=== PATIENT | female | born 1985 | race Caucasian/White ===

== ENCOUNTER 2024-04-19 15:01 | Outpatient (CLI) | payer BC, SELFPAY ==
[2024-04-19 17:03] LABS: HCG,Quantitative 43004 mIU/ml (0-5.42)
[2024-04-21 10:23] LABS: Progesterone 14.5 ng/mL (.)
== END 2024-04-19 23:59 | disposition home or self-care (01) ==
LOC: LAB 15:04
PROVIDERS: PCP Obstetrics & Gynecology; Visit Provider Obstetrics & Gynecology
DX: N92.6 Irregular menstruation, unspecified (principal)
CPT/HCPCS: 36415; 84144; 84702

== ENCOUNTER 2024-04-30 14:40 | Outpatient (CLI) | payer BC, SELFPAY ==
[2024-04-30 15:36] LABS: Basophils # 0.1 K/mm3 (0-0.2); Basophils % 0.6 % (0.1-2.0); Eosinophils # 0.1 K/mm3 (0.0-0.4); Eosinophils % 0.5 % (0.1-12.0); Hematocrit 42.7 % (37.0-47.0); Hemoglobin 14.1 g/dL (12.2-16.2); Lymphocytes # 2.4 K/mm3 (0.7-4.5); Lymphocytes % 19.7 % (10-50); Mean Corpuscular HGB Conc 33.1 g/dL (31.8-35.4); Mean Corpuscular Hemoglobin 31.4 pg (27.0-31.2); Mean Corpuscular Volume 94.7 fl (81-99); Mean Platelet Volume 8.9 fl (7.4-10.4); Monocytes # 0.5 K/mm3 (0.1-1.0); Neutrophils # 9.3 K/mm3 (1.8-7.8); Neutrophils % 75.3 % (37.0-80.0); Platelet Count 267 K/mm3 (142-424); Red Cell Distribution Width 13.5 % (11.5-17.5); White Blood Count 12.4 K/mm3 (4.8-10.8)
[2024-05-01 06:54] LABS: HCV Ab Non Reactive (Non Reactive); Hepatitis B Surface Antigen Negative (Negative); Rubella Antibodies, IgG 1.99 index (Immune >0.99)
[2024-05-01 10:03] LABS: HIV (1&2) Antibody Rapid NONREACTIVE (NONREACTIVE)
[2024-05-01 12:55] LABS: Rapid Plasma Reagin Ab Titer Non Reactive titer (NonRea<1:1)
== END 2024-04-30 23:59 | disposition home or self-care (01) ==
LOC: LAB 14:42
PROVIDERS: Visit Provider Obstetrics & Gynecology
DX: Z34.91 Encounter for supervision of normal pregnancy, unspecified, first trimester (principal); Z3A.08 8 weeks gestation of pregnancy
CPT/HCPCS: 36415; 85025; 86593; 86762; 86850; 87086; 87340

== ENCOUNTER 2024-09-10 15:33 | Outpatient (CLI) | payer BC, SELFPAY ==
[2024-09-10 16:32] LABS: Basophils # 0.1 K/mm3 (0-0.2); Basophils % 0.4 % (0.1-2.0); Eosinophils # 0.2 K/mm3 (0.0-0.4); Eosinophils % 1.5 % (0.1-12.0); Hematocrit 39.3 % (37.0-47.0); Hemoglobin 13.3 g/dL (12.2-16.2); Lymphocytes # 2.3 K/mm3 (0.7-4.5); Lymphocytes % 21.2 % (10-50); Mean Corpuscular HGB Conc 33.7 g/dL (31.8-35.4); Mean Platelet Volume 8.8 fl (7.4-10.4); Monocytes # 0.6 K/mm3 (0.1-1.0); Monocytes % 5.8 % (1.7-9.3); Neutrophils # 7.6 K/mm3 (1.8-7.8); Neutrophils % 70.9 % (37.0-80.0); Platelet Count 220 K/mm3 (142-424); Red Blood Count 4.27 M/mm3 (4.20-5.40); Red Cell Distribution Width 13.7 % (11.5-17.5); White Blood Count 10.7 K/mm3 (4.8-10.8)
[2024-09-10 16:45] LABS: Glucose 1 Hour 78 mg/dL (74-100); Glucose,Fasting 78 mg/dl (74-100)
[2024-09-11 15:00] LABS: RPR W/RFX Titers Nonreactive (Nonreactive)
== END 2024-09-10 23:59 | disposition home or self-care (01) ==
LOC: LAB 15:33
PROVIDERS: Visit Provider Obstetrics & Gynecology
DX: Z34.90 Encounter for supervision of normal pregnancy, unspecified, unspecified trimester (principal)
CPT/HCPCS: 36415; 82951; 85025; 86592

== ENCOUNTER 2024-11-12 16:00 | Outpatient (CLI) | payer BC, SELFPAY | END 2024-11-12 23:59 | disposition home or self-care (01) | LOC: LAB.DROPOF 11-13 10:48 | PROVIDERS: PCP Obstetrics & Gynecology; Visit Provider Obstetrics & Gynecology | DX: Z34.83 Encounter for supervision of other normal pregnancy, third trimester (principal) | CPT/HCPCS: 86403 ==

== ENCOUNTER 2024-12-02 01:00 | Inpatient (IN) | payer BC, SELFPAY ==
[2024-12-02 00:35] VITALS: BMI 35.5
[2024-12-02 00:54] VITALS: BP 128/85; PULSE 81; RESP 19; TEMP 36.4; O2SAT 97; BMI 35.5
[2024-12-02 01:41] LABS: Microscopic, Urine URINE MICROSCOPIC (MICROSCOPIC)
[2024-12-02 01:43] LABS: Appearance,Urine CLEAR (Clear); Bilirubin,Urine Negative (Negative); Blood, Urine TRACE-L (Negative); Color,Urine YELLOW (Yellow); Glucose,Urine (UA) Negative (Negative); Ketones,Urine Negative (Negative); Leukocyte Esterase,Urine Negative (Negative); Nitrate,Urine Negative (Negative); Protein,Urine Negative (Negative); Specific Gravity, Urine 1.025 (1.005-1.030); Urobilinogen,Urine 0.2 EU/dl (0.2)
[2024-12-02 01:43] LABS: Basophils # 0.1 K/mm3 (0-0.2); Basophils % 0.5 % (0.1-2.0); Eosinophils # 0.3 K/mm3 (0.0-0.4); Eosinophils % 2.1 % (0.1-12.0); Hematocrit 40.8 % (37.0-47.0); Hemoglobin 13.9 g/dL (12.2-16.2); Lymphocytes # 3.2 K/mm3 (0.7-4.5); Lymphocytes % 20.1 % (10-50); Mean Corpuscular HGB Conc 34.1 g/dL (31.8-35.4); Mean Corpuscular Hemoglobin 30.1 pg (27.0-31.2); Mean Corpuscular Volume 88.3 fl (81-99); Mean Platelet Volume 12.5 fl (7.4-10.4); Monocytes # 1.3 K/mm3 (0.1-1.0); Monocytes % 7.9 % (1.7-9.3); Neutrophils # 10.9 K/mm3 (1.8-7.8); Neutrophils % 68.7 % (37.0-80.0); Platelet Count 269 K/mm3 (142-424); Red Blood Count 4.62 M/mm3 (4.20-5.40); Red Cell Distribution Width 13.2 % (11.5-17.5); White Blood Count 15.9 K/mm3 (4.8-10.8)
[2024-12-02 01:49] LABS: MANUAL DIFFERENTIAL MANUAL DIFFERENTIAL (MANUAL DIFF)
[2024-12-02 01:52] LABS: Bacteria,Urine Trace /lpf; RBC,Urine Occasional #/hpf (0-3); Squamous Epithelial Cell,Urine Occasional #/hpf (0-5)
--- NOTE | 2024-12-02 01:57 | P.HP_ITS ---
OB - H&P: HPI Antepartum History of Present Illness Chief complaint: Leakage of fluid and painful contractions History of present illness: Mrs Angie Le is a 39 yo at 39w2d who presents to [facility] L&D with complaint of leakage of fluid that started on 12/01/24 at 0100. Contractions started after she started leaking. She states contractions stalled out during the day but picked back up in intensity and frequency around 2000 on 12/01/24. She has had good care. History of Present Criteria for establishing EDC:: LMP confirmed by 1st trimester US care: good care Ultrasounds: normal mid trimester US Obstetrical complications: none Labs Blood type: A (+) positive Rubella: immune RPR/VDRL: nonreactive GBS status: negative HBsAG: negative PFSH PFS Disclaimer: The information contained in this section may have been updated after the patient was seen, as this information can be updated by other users. Medical History (Updated 12/02/24 @ 02:07 by Nicki Iverson DO) SROM (spontaneous rupture of membranes) Active labor at term Positive screening test Screening for genetic disease carrier status Advanced maternal age in multigravida Seasonal allergies Surgical History [place] teeth extracted Family History Family/Other No problems noted. Grandmother Cancer paternal-breast Mother Diabetes Father Cancer prostate Social History Smoking Status: Never smoker alcohol intake: never current occupational status: employed Travel in the last 8 weeks: None Have you lived/traveled outside [place] in past 30 days?: No Contact w/someone who lives/traveled outside [place] past 30 days?: No Exposure to someone with infectious disease in past 14 days?: No Do you have a fever (greater than 100.4 F or 38 C)?: No Have you tested positive for COVID-19: No Exposed to someone with COVID-19 in past 14 days?: No Do you have a sore throat?: No Do you have a cough?: No Do you have any weakness?: No Do you have any diarrhea?: No Are you experiencing any unusual bleeding?: No Do you have any muscle aches/pain?: No Do you have any abdominal pain?: No Are you experiencing loss of taste or smell?: No Review of Systems Review of Systems Review of systems:: pertinent systems reviewed and negative unless documented below *Genitourinary Comments: + leakage of fluid, contractions Meds Home Medications and Allergies Home Medications ?Medication ?Instructions ?Recorded ?Confirmed ?Type budesonide 32 mcg/actuation nasal 1 spray intranasal DAILY 04/30/24 11/26/24 History spray loratadine 10 mg tablet (Claritin) 10 mg PO DAILY 04/30/24 11/26/24 History vits no.126-ferrous fum 1 tab PO 04/30/24 11/26/24 History 28 mg iron-folic acid 800 mcg tablet (Classic ) New Prescriptions to Start Prescriptions: Allergies Allergy/AdvReac Type Severity Reaction Status Date / Time No Known Allergies Allergy Verified 11/26/24 15:34 OB - H&P: Exam Constitutional no acute distress and cooperative Routine HEENT Exam Head: Present normocephalic and atraumatic Eye: Absent conjunctivae pink ENT: Present mucous membranes moist Routine Neck Exam Present full ROM Routine Respiratory Exam Present CTA bilaterally and normal respiratory effort Routine Cardiovascular Exam Present RRR Routine Abdominal Exam Present soft (Gravid); Absent tenderness Routine Rectal Exam Patient deferred: visual exam Routine Exam External: Present normal urethra appearance; Absent erythema, swelling, tenderness, lesions or lacerations Routine Extremities Exam Present full ROM; Absent edema or calf tenderness Routine Neurological Exam Present alert, moving all extremities and normal speech Routine Psychiatric Exam Present normal affect and cooperative Detailed Labor and Delivery Exam Dilation (cm): 6 Effacement (%): 90 Cervix position: mid station: -1 Consistency: soft OB - Results Labs Labs: Short CBC 12/02/24 Range/Units 01:10 WBC 15.9 H (4.8-10.8) K/mm3 Hgb 13.9 (12.2-16.2) g/dL Hct 40.8 (37.0-47.0) % Plt Count 269 (142-424) K/mm3 Urine 12/02/24 Range/Units 01:00 Urine Color Yellow (Yellow) Urine Appearance Clear (Clear) Urine pH 6.0 (5.0-8.5) Ur Specific [place] 1.025 (1.005-1.030) Urine Protein Negative (Negative) Urine Glucose (UA) Negative (Negative) OB - A/P Antepartum (1) SROM (spontaneous rupture of membranes): Status: Acute (2) Active labor at term: Status: Acute (3) Advanced maternal age in multigravida: Status: Acute (4) Positive screening test: Problem details: NIPT was high risk due to DNA fraction, 2.7 %. High risk for Trisomy 18 or 13 Status: Acute Additional Plan Planning to breastfeed?: Yes Additional Information:: Admit to [facility] for active labor, SROM GBS negative Close monitoring Anticipate vaginal delivery
--- NOTE | 2024-12-02 02:08 | EXP.DN ---
Delivery Note Delivery Date:: 12/02/24 Delivery Time:: 01:34 Anesthesia Type: None Was labor medically induced?: No Gestational age (weeks): 39 Infant delivered prior to 39 weeks?: No Infant Gender: Male at 1 minute: 7 at 5 minutes: 8 Delivery Procedure:: Mom complete without epidural. Pushed for approximately one contraction purposefully. Head delivered spontaneously over intact perineum in OA position. No nuchal cord. Anterior shoulder delivered with gentle downward pressure. Posterior shoulder and remainder of body delivered spontaneously. Baby placed on maternal abdomen, mouth and nares bulb suctioned, warmed/dried and stimulated. Delayed cord clamping was performed for 60 seconds. Cord was clamped and cut by father of baby. Cord blood was obtained. Placenta delivered spontaneously and intact. Small first degree perineal laceration was hemostatic. Mom and baby were skin to skin and doing well after delivery. Live male baby (baby's name is Jerson) APGARs 7 (1 min), 8 (5 min) EBL 50 mL Placental Delivery Description: Spontaneous
[2024-12-02 02:26] LABS: Eosinophils % 3 % (0-3); Lymphocytes % 23 % (10-50); Monocytes % 6 % (2-9); Neutrophils % 68 % (42-76); Platelet Estimate Normal; RBC Morphology Normal; Total Cells Counted 100
[2024-12-02] MEDS: IBUPROFEN 400 MG TABLET 800 MG PO ×2 (03:31→15:54)
[2024-12-02] MEDS: BENZOCAINE-MENTHOL SPRAY 56GM CAN TP (03:31)
[2024-12-02] MEDS: WITCH HAZEL 40 PADS/BOX 1 EACH TP ×2 (03:32→21:52)
[2024-12-02 04:47] LABS: RPR W/RFX Titers Nonreactive (Nonreactive)
[2024-12-02] MEDS: ACETAMINOPHEN 500MG TAB 1000 MG PO ×2 (08:08→21:52)
[2024-12-02 08:16] VITALS: BP 116/63; PULSE 79; RESP 16; TEMP 36.7; O2SAT 96
[2024-12-02 16:00] VITALS: BP 131/76; PULSE 74; RESP 16; TEMP 36.6; O2SAT 98
[2024-12-02] MEDS: PRENATAL MULTIVITAMIN W/IRON 1 EACH PO (17:04)
[2024-12-02] MEDS: LANOLIN CREAM 40GM TP (21:53)
[2024-12-03 07:17] LABS: Hematocrit 37.6 % (37.0-47.0); Hemoglobin 12.5 g/dL (12.2-16.2)
--- NOTE | 2024-12-03 09:06 | P.DS_ITS ---
General Admission date:: 12/02/24 Discharge date: 12/03/24 HPI HPI HPI: PPD # 1 s/p Feeling well. Pain controlled. Breast feeding. Lochia is appropriate. Voiding without difficulty and passing flatus. Tolerating regular diet. Denies fever/chills, chest pain and shortness of breath. No headaches, vision changes, lightheadedness/dizziness. No lower extremity swelling. Ambulating well ad nelida. Hospital Course Hospital Course Hospital Course: Mrs Angie Le is a 39 yo at 39w2d who presents to [facility] L&D with complaint of leakage of fluid that started on 12/01/24 at 0100. Contractions started after she started leaking. She states contractions stalled out during the day but picked back up in intensity and frequency around 1999 on 12/01/24. She has had good care. She had a normal spontaneous vaginal delivery on 12/02/24 at 0134. She delivered a live male baby, Jerson, weighing 7 lb 12 oz. APGARs 7 (1 min), 8 (5 min). EBL 50 mL. She did well . Pain controlled. Breast feeding. Light lochia. Voiding without difficulty and passing flatus. Tolerating regular diet. Denies f ever/chills, chest pain and shortness of breath. No headaches, dizziness/lightheadedness or vision changes. Vital signs stable, afebrile. Heart regular rate and rhythm. Lungs clear to auscultation. Abdomen soft, nontender. No lower extremity swelling. Ambulating well ad nelida. Normal hospital course. She was discharged to home on PPD # 1 with instructions to follow-up in the office in 2 weeks or sooner if needed. Exam Data for Last 24 hours Vital signs and Labs for Last 24 Hours: Temp Pulse Resp BP Pulse Ox O2 Del Method 97.8 F 74 16 131/76 98 Room Air 12/02/24 16:00 12/02/24 16:00 12/02/24 16:00 12/02/24 16:00 12/02/24 16:12/02/24 16:00 Laboratory Results - last 24 hr 12/03/24 06:34: Hgb 12.5, Hct 37.6 I & O for Last 24 hours: Intake & Output 11/30/24 12/01/24 12/02/2412/03/25 23:59 23:59 23:59 23:59 Intake Total 210 / 210 Balance 210 / 210 Weight 220 lb Constitutional Constitutional: no acute distress and cooperative *Routine HEENT Exam Head: Present normocephalic and atraumatic Eye: Absent conjunctivae pink ENT: Present mucous membranes moist *Routine Neck Exam Neck: Present full ROM *Routine Respiratory Exam Respiratory: Present CTA bilaterally and normal respiratory effort *Routine Cardiovascular Exam Cardiovascular: Present RRR *Routine Abdominal Exam Abdominal: Present soft; Absent tenderness or distended Comments: Uterine fundus firm and below umbilicus *Routine Rectal Exam Patient deferred: visual exam *Routine Exam Patient deferred: external exam *Routine Extremities Exam Extremities: Present full ROM; Absent edema or calf tenderness *Routine Neurological Exam Neurological: Present alert, moving all extremities and normal speech Routine Psychiatric Exam Psychiatric: Present normal affect and cooperative Results Data Completed and Pending Labs on day of discharge: Labs from last 24 hours 12/03/24 06:34 Hgb 12.5 Hct 37.6 DS: Diagnosis Discharge Diagnosis (1) Status post normal vaginal delivery: Status: Acute (2) SROM (spontaneous rupture of membranes): Status: Acute (3) Active labor at term: Status: Acute (4) Advanced maternal age in multigravida: Status: Acute Code(s): O09.529 - Supervision of elderly multigravida, unspecified trimester Qualifiers: Trimester: first trimester Qualified Code(s): O09.521 - Supervision of elderly multigravida, first trimester (5) Positive screening test: Status: Acute Code(s): O28.9 - Unspecified abnormal findings on screening of mother Problem details: NIPT was high risk due to DNA fraction, 2.7 %. High risk for Trisomy 18 or 13 Meds Home Medications and Allergies Home Medications ?Medication ?Instructions ?Recorded ?Confirmed ?Type loratadine 10 mg tablet (Claritin) 10 mg PO DAILY 04/30/24 12/02/24 History vits no.126-ferrous fum 1 tab PO DAILY 04/30/24 12/02/24 History 28 mg iron-folic acid 800 mcg tablet (Classic ) New Prescriptions to Start Prescriptions: Allergies Allergy/AdvReac Type Severity Reaction Status Date / Time No Known Allergies Allergy Verified 12/02/24 02:57 Discharge Plan Disposition Patient Disposition: Home, Self-Care Condition: Good Discharge Order Discharge Orders: Discharge Order (Routine); Ordered 12/03/24 Ordered By: Nicki Iverson Follow up Plan Prescriptions/Medication Reconciliation: Continued loratadine [Claritin] 10 mg tablet 10 mg PO DAILY Classic 28 mg iron- 800 mcg tablet 1 tab PO DAILY Problem Reconciliation Problems Reviewed?: Yes Patient Discharge Instructions ACTIVITY: Limited activity DIET: continue same diet and regular diet Additional Instructions: Congratulations!! Discharge: 1. Take 800 mg Ibuprofen every 8 hours as needed for pain. You can also take 500-1000 mg of Tylenol in between doses, every 6-8 hours. 2. Nothing in the vagina for 6 weeks - no intercourse, douching or tampons. No tub baths/hot tubs or swimming pools 3. Reasons to return to L&D or call On-Call doctor - fever (greater than 100.4) - heavy vaginal bleeding (soaking through 1 pad in less than 2 hours) - vaginal discharge (malodorous and/or purulent) - severe headaches not resolved by medication or rest and leg tenderness/edema 4. depression/blues - Normal to feel anxious/overwhelmed for first 2 weeks - Talk to your doctor if: severe anxiety, trouble bonding with baby, withdrawing from other family members, thoughts of harming yourself or others Nicki Iverson DO [facility] [phone] Print Language: Belarusian Providers Primary Care Provider: Provider,Referral Admit Provider: Nicki Iverson Attending Provider: Nicki Iverson
== END 2024-12-03 13:50 | disposition home or self-care (01) | DRG 807 ==
LOC: OBOUT 01:01 → OB 01:01
PROVIDERS: Admitting Provider Obstetrics & Gynecology; Visit Provider Obstetrics & Gynecology
DX: O70.0 First degree perineal laceration during delivery (principal); Z37.0 Single live birth; Z3A.39 39 weeks gestation of pregnancy
CPT/HCPCS: 36415; 81001; 85007; 85014; 85018; 85025; 86592; 86850